=== PATIENT | female | born 1970 | race African-American/Black ===

== ENCOUNTER 2016-12-01 17:17 | Emergency (ER) | payer OTHER ==
[~2016-12-01] VITALS: Ht 172.7 cm; Wt 87.1 kg
[2016-12-01 18:28] LABS: Albumin 3.8 g/dL (3.4-5.0); Anion Gap 10 (5-15); Aspartate Aminotransferase 20 U/L (15-37); BUN/Creatinine Ratio 12.3; Blood Urea Nitrogen 10 mg/dL (7-18); Calcium 8.7 mg/dL (8.5-10.1); Carbon Dioxide 27 mmol/L (21-32); Chloride 104 mmol/L (98-107); GFR African American 99 mL/min; GFR Non-African American 82 mL/min; Glucose 72 mg/dL (74-106); Potassium 3.4 mmol/L (3.5-5.1); Sodium 141 mmol/L (136-145)
[2016-12-01 18:32] LABS: Alkaline Phosphatase 57 U/L (45-117); Bilirubin, Total 0.5 mg/dL (0.2-1.0); Total Protein 8.1 g/dL (6.4-8.2)
[2016-12-01 18:35] LABS: Basophils # (auto) 0 uL; Basophils % (auto) 0.5 % (0.0-2.0); Eosinophils # (auto) 0.1 uL; Eosinophils % (auto) 0.9 % (0.0-7.0); Hematocrit 39.6 % (36.0-46.0); Hemoglobin 13.5 g/dL (12.2-16.2); Lymphocytes # (auto) 3.2 uL; Lymphocytes % (auto) 47.7 % (10.0-50.0); Mean Corpuscular Volume 79.5 fL (80.0-100.0); Mean Platelet Volume 8.7 fL (7.4-10.4); Monocytes # (auto) 0.5 uL; Monocytes % (auto) 7.5 % (0.0-12.0); Neutrophils # (auto) 2.9 uL; Neutrophils % (auto) 43.4 % (37.0-80.0); Platelet Count (auto) 371 10^3/uL (140-450); Red Cell Distribution Width 13.6 % (11.6-16.0); White Blood Cell 6.7 10^3/uL (4.4-10.8)
[2016-12-01 21:08] VITALS: BP 138/64
== END 2016-12-01 21:12 | disposition home or self-care (01) ==
LOC: ER 17:26
DX: R07.89 Other chest pain (principal); T50.5X5A Adverse effect of appetite depressants, initial encounter; Y92.9 Unspecified place or not applicable; R51 Headache; Z88.6 Allergy status to analgesic agent
CPT/HCPCS: 36415; 71020; 80053; 84484; 85025; 93005

== ENCOUNTER 2017-02-13 18:21 | Emergency (ER) | payer BC, OTHER ==
[~2017-02-13] VITALS: Ht 172.7 cm; Wt 83.9 kg
[2017-02-13 19:49] LABS: Basophils # (auto) 0 uL; Basophils % (auto) 0.5 % (0.0-2.0); CONDITION Y; Eosinophils # (auto) 0.1 uL; Eosinophils % (auto) 1.8 % (0.0-7.0); Hemoglobin 12.9 g/dL (12.2-16.2); Lymphocytes # (auto) 2.4 uL; Lymphocytes % (auto) 44.4 % (10.0-50.0); Mean Corpuscular Hgb Conc. 34.9 g/dL (32.0-36.0); Mean Corpuscular Volume 80.5 fL (80.0-100.0); Mean Platelet Volume 8.9 fL (7.4-10.4); Monocytes # (auto) 0.4 uL; Monocytes % (auto) 7.4 % (0.0-12.0); Neutrophils # (auto) 2.4 uL; Neutrophils % (auto) 45.9 % (37.0-80.0); Platelet Count (auto) 345 10^3/uL (140-450); Red Cell Distribution Width 13.2 % (11.6-16.0); White Blood Cell 5.3 10^3/uL (4.4-10.8)
[2017-02-13 19:59] LABS: Albumin 3.4 g/dL (3.4-5.0); BUN/Creatinine Ratio 12.2; Calcium 8.3 mg/dL (8.5-10.1); Potassium 3.7 mmol/L (3.5-5.1)
[2017-02-13 20:01] LABS: Bilirubin, Total 0.4 mg/dL (0.2-1.0); Total Protein 7.5 g/dL (6.4-8.2)
[2017-02-13 20:07] LABS: B-Type Natriuretic Peptide 114.04 pg/mL (0-100)
[2017-02-13 20:12] LABS: Temperature: 23.3 C (20.0-25.0)
[2017-02-13 22:30] VITALS: BP 145/109
[2017-02-14 00:19] LABS: Urine Bilirubin Negative (Negative); Urine Color Yellow (Yellow); Urine Glucose Normal (Normal); Urine Ketone Negative (Negative); Urine Mucus FEW (None Seen); Urine Nitrite Negative (Negative); Urine RBC 10 /hpf (0 - 4); Urine Squamous Epithelial Cell FEW /hpf (<5); Urine Urobilinogen Normal (Negative); Urine pH 5.5 (5.0-8.0)
[2017-02-14 00:28] LABS: Urine Blood 2+ /uL (Negative)
== END 2017-02-14 00:01 | disposition home or self-care (01) ==
LOC: ER 18:35
DX: I10 Essential (primary) hypertension (principal); R07.89 Other chest pain; Z98.51 Tubal ligation status; Z88.6 Allergy status to analgesic agent; Z88.8 Allergy status to other drugs, medicaments and biological substances
CPT/HCPCS: 36415; 80053; 81001; 83880; 85025; 93005

== ENCOUNTER 2018-12-24 04:31 | Emergency (ER) | payer OTHER ==
[~2018-12-24] VITALS: Ht 172.7 cm; Wt 86.2 kg
[2018-12-24 05:32] LABS: Urine Bacteria FEW /hpf (None Seen); Urine Blood Negative /uL (Negative); Urine Mucus FEW (None Seen); Urine Specific Gravity 1.022 (1.001-1.035); Urine WBC 5 /hpf (0 - 5)
[2018-12-24 05:56] LABS: Eosinophils # (auto) 0.1 uL; Hemoglobin 12.5 g/dL (12.2-16.2); Lymphocytes # (auto) 2.2 uL; Neutrophils # (auto) 2.7 uL; White Blood Cell 5.6 10^3/uL (4.4-10.8)
[2018-12-24 05:57] LABS: Basophils # (auto) 0.1 uL; Eosinophils % (auto) 2.2 % (0.0-7.0); Hematocrit 36.6 % (36.0-46.0); Lymphocytes % (auto) 38.8 % (10.0-50.0); Mean Corpuscular Hemoglobin 26.5 pg (28.0-32.0); Mean Corpuscular Hgb Conc. 34.1 g/dL (32.0-36.0); Mean Corpuscular Volume 77.8 fL (80.0-100.0); Monocytes # (auto) 0.5 uL; Monocytes % (auto) 9.6 % (0.0-12.0); Neutrophils % (auto) 48.4 % (37.0-80.0); Nucleated Red Blood Cells % 0.1 %; Platelet Count (auto) 306 10^3/uL (140-450); Red Blood Cells 4.71 10^6/uL (4.0-5.20); Red Cell Distribution Width 13.9 % (11.8-14.3)
[2018-12-24 06:18] LABS: Albumin 3.3 g/dL (3.4-5.0); BUN/Creatinine Ratio 14.3; Calcium 8.1 mg/dL (8.5-10.1); Potassium 3.5 mmol/L (3.5-5.1)
[2018-12-24 06:21] LABS: Bilirubin, Total 0.2 mg/dL (0.2-1.0); Total Protein 7.3 g/dL (6.4-8.2)
[2018-12-24 09:46] VITALS: BP 121/78
== END 2018-12-24 10:35 | disposition home or self-care (01) ==
LOC: ER 04:31
DX: N83.209 Unspecified ovarian cyst, unspecified side (principal); I10 Essential (primary) hypertension; Z88.6 Allergy status to analgesic agent; Z98.51 Tubal ligation status; Z88.8 Allergy status to other drugs, medicaments and biological substances
CPT/HCPCS: 36415; 76700; 76856; 80053; 81001; 83690; 83735; 84702; 85025

== ENCOUNTER 2020-10-05 07:52 | Emergency (ER) | payer OTHER ==
[~2020-10-05] VITALS: Ht 172.7 cm; Wt 110.2 kg
[2020-10-05 09:03] LABS: Urine Bacteria FEW /hpf (None Seen); Urine Blood 2+ /uL (Negative); Urine Mucus FEW (None Seen); Urine Specific Gravity 1.028 (1.001-1.035); Urine WBC 10 /hpf (0 - 5)
[2020-10-05 09:04] LABS: Basophils # (auto) 0 10 ^3/uL (0-0.2); Eosinophils # (auto) 0.1 10 ^3/uL (0-0.8); Lymphocytes # (auto) 1.6 10 ^3/uL (0.4-5.4); Neutrophils # (auto) 2.3 10 ^3/uL (1.6-8.6); Red Blood Cells 4.54 10^6/uL (4.0-5.20); White Blood Cell 4.5 10^3/uL (4.4-10.8)
[2020-10-05 09:06] LABS: Basophils % (auto) 0.7 % (0.0-2.0); Eosinophils % (auto) 1.8 % (0.0-7.0); Hematocrit 31.8 % (36.0-46.0); Hemoglobin 10.7 g/dL (12.2-16.2); Lymphocytes % (auto) 36.3 % (10.0-50.0); Mean Corpuscular Hemoglobin 23.7 pg (28.0-32.0); Mean Corpuscular Hgb Conc. 33.8 g/dL (32.0-36.0); Mean Corpuscular Volume 70.1 fL (80.0-100.0); Monocytes # (auto) 0.4 10 ^3/uL (0-1.3); Monocytes % (auto) 9.7 % (0.0-12.0); Neutrophils % (auto) 51.5 % (37.0-80.0); Nucleated Red Blood Cells % 0.1 %
[2020-10-05 09:17] LABS: Albumin 3.2 g/dL (3.4-5.0); BUN/Creatinine Ratio 13.6; Calcium 8.4 mg/dL (8.5-10.1); Potassium 3.6 mmol/L (3.5-5.1)
[2020-10-05 09:20] LABS: Bilirubin, Total 0.4 mg/dL (0.2-1.0); Total Protein 7.3 g/dL (6.4-8.2)
[2020-10-05] MEDS ORDERED: cefTRIAXone 1GM/50ML D5W 50 ML IV ONE (10:00)
[2020-10-05] MEDS ORDERED: SODIUM CHLORIDE 0.9% 1,000 ML IV ONE (10:00)
[2020-10-05 12:33] VITALS: BP 107/72
== END 2020-10-05 13:50 | disposition home or self-care (01) ==
LOC: ER 07:52
DX: N83.202 Unspecified ovarian cyst, left side (principal); N83.201 Unspecified ovarian cyst, right side; D25.9 Leiomyoma of uterus, unspecified; N39.0 Urinary tract infection, site not specified; N76.0 Acute vaginitis; E44.1 Mild protein-calorie malnutrition; E78.5 Hyperlipidemia, unspecified; I10 Essential (primary) hypertension; Z68.36 Body mass index [BMI] 36.0-36.9, adult; Z32.02 Encounter for pregnancy test, result negative
CPT/HCPCS: 36415; 76830; 76856; 80053; 81001; 81025; 85025; 96365; 99285; J0696; J7030

== ENCOUNTER 2022-04-22 21:23 | Inpatient (IN) | payer OTHER ==
[~2022-04-22] VITALS: Ht 172.7 cm; Wt 121.7 kg
[2022-04-22 22:21] LABS: Urine Bacteria FEW /hpf (None Seen); Urine Blood Negative /uL (Negative); Urine Mucus FEW (None Seen); Urine Specific Gravity 1.018 (1.001-1.035); Urine WBC 1 /hpf (0 - 5)
[2022-04-22 22:32] LABS: Eosinophils # (auto) 0.1 10 ^3/uL (0-0.8); Eosinophils % (auto) 1.4 % (0.0-7.0); Hemoglobin 10.9 g/dL (12.2-16.2); Monocytes # (auto) 0.9 10 ^3/uL (0-1.3); Neutrophils # (auto) 4.5 10 ^3/uL (1.6-8.6); Nucleated Red Blood Cells % 0.1 %; White Blood Cell 8.1 10^3/uL (4.4-10.8)
[2022-04-22 22:33] LABS: Basophils # (auto) 0 10 ^3/uL (0-0.2); Basophils % (auto) 0.6 % (0.0-2.0); Hematocrit 34.1 % (36.0-46.0); Lymphocytes # (auto) 2.6 10 ^3/uL (0.4-5.4); Lymphocytes % (auto) 32.6 % (10.0-50.0); Mean Corpuscular Hemoglobin 20.6 pg (28.0-32.0); Mean Corpuscular Hgb Conc. 31.8 g/dL (32.0-36.0); Mean Corpuscular Volume 64.9 fL (80.0-100.0); Monocytes % (auto) 10.5 % (0.0-12.0); Neutrophils % (auto) 54.9 % (37.0-80.0); Red Blood Cells 5.26 10^6/uL (4.0-5.20); Red Cell Distribution Width 20.1 % (11.8-14.3)
[2022-04-22 22:44] LABS: INR 0.98 (0.9-1.15)
[2022-04-22 22:48] LABS: Albumin 3.6 g/dL (3.4-5.0); BUN/Creatinine Ratio 12.4; Calcium 8.8 mg/dL (8.5-10.1); Magnesium 2.1 mg/dL (1.6-2.6); Potassium 3.6 mmol/L (3.5-5.1)
[2022-04-22 22:52] LABS: Bilirubin, Total 0.4 mg/dL (0.2-1.0); Total Protein 7.7 g/dL (6.4-8.2)
[2022-04-22] MEDS ORDERED: ASPirin 325 MG TAB PO ONE (23:45)
[2022-04-23] MEDS ORDERED: ASPirin 81 mg TAB PO ONE ×2 (00:09→00:15)
[2022-04-23] MEDS ORDERED: MORPHINE SULFATE INJ 2 MG/ml SYRG IV PRN (09:30)
[2022-04-23] MEDS ORDERED: cefTRIAXone 1GM/50ML D5W 50 ML IV ONE (09:30)
[2022-04-23] MEDS ORDERED: HYDROcodone-ACET 5/325MG TAB PO PRN (09:30)
[2022-04-23] MEDS ORDERED: ACETAMINOPHEN 325 MG TAB PO PRN (09:30)
[2022-04-23] MEDS ORDERED: ONDANSETRON HCL 4 MG/2 ML VIAL IV PRN (09:30)
[2022-04-23] MEDS ORDERED: DOCUSATE SOD 100 MG CAP PO PRN (09:30)
[2022-04-23] MEDS: ENOXAPARIN SOD 40 MG/0.4 ML SYRINGE SC SCH (09:59)
[2022-04-23 22:30] VITALS: BP 102/72
[2022-04-23 22:39] VITALS: BP 102/72
[2022-04-23] MEDS ORDERED: AMLO-489 PO (22:49)
[2022-04-23] MEDS ORDERED: SIMV-8 PO (22:49)
[2022-04-24 05:14] VITALS: BP 102/64
[2022-04-24 07:29] LABS: Basophils # (auto) 0 10 ^3/uL (0-0.2); Eosinophils # (auto) 0.1 10 ^3/uL (0-0.8); Eosinophils % (auto) 0.8 % (0.0-7.0); Monocytes # (auto) 0.7 10 ^3/uL (0-1.3)
[2022-04-24 07:34] LABS: Basophils % (auto) 0.6 % (0.0-2.0); Hematocrit 33.2 % (36.0-46.0); Hemoglobin 10.5 g/dL (12.2-16.2); Lymphocytes # (auto) 1.8 10 ^3/uL (0.4-5.4); Lymphocytes % (auto) 26.4 % (10.0-50.0); Mean Corpuscular Hemoglobin 20.7 pg (28.0-32.0); Mean Corpuscular Hgb Conc. 31.7 g/dL (32.0-36.0); Mean Corpuscular Volume 65.2 fL (80.0-100.0); Monocytes % (auto) 10.5 % (0.0-12.0); Neutrophils # (auto) 4.3 10 ^3/uL (1.6-8.6); Neutrophils % (auto) 61.7 % (37.0-80.0); Nucleated Red Blood Cells % 0.3 %
[2022-04-24 07:49] LABS: Albumin 3.3 g/dL (3.4-5.0); Calcium 8.5 mg/dL (8.5-10.1); Potassium 4.5 mmol/L (3.5-5.1)
[2022-04-24 07:50] LABS: Red Cell Distribution Width 20.5 % (11.8-14.3)
[2022-04-24 07:55] LABS: Bilirubin, Total 0.4 mg/dL (0.2-1.0)
[2022-04-24 08:19] LABS: BUN/Creatinine Ratio 16.7
[2022-04-24 08:20] VITALS: BP 105/64
[2022-04-24] MEDS: AZITHROMYCIN 500MG/ 250ML 250 ML IV SCH (09:22)
[2022-04-24] MEDS: ENOXAPARIN SOD 40 MG/0.4 ML SYRINGE SC SCH (09:22)
[2022-04-24 12:25] VITALS: BP 127/78
[2022-04-24 16:25] VITALS: BP 122/73
[2022-04-24 22:00] VITALS: BP 106/60
[2022-04-25 05:00] VITALS: BP 107/73
[2022-04-25 08:20] VITALS: BP 115/74
[2022-04-25] MEDS: AZITHROMYCIN 500MG/ 250ML 250 ML IV SCH (10:08)
[2022-04-25] MEDS: ENOXAPARIN SOD 40 MG/0.4 ML SYRINGE SC SCH (10:08)
[2022-04-25 12:20] VITALS: BP 117/79
[2022-04-25] MEDS ORDERED: AZIT500T66 PO (12:38)
== END 2022-04-25 16:00 | disposition home or self-care (01) | DRG 194 ==
LOC: ER 21:24 → TELE 04-23 09:19 → TELE-WESTW 04-23 10:07
PROVIDERS: ADMIT Internal Medicine; ATTEND Internal Medicine
DX: J18.9 Pneumonia, unspecified organism (principal); Z68.41 Body mass index [BMI] 40.0-44.9, adult; R07.89 Other chest pain; Z20.822 Contact with and (suspected) exposure to COVID-19; E78.00 Pure hypercholesterolemia, unspecified; I10 Essential (primary) hypertension; D64.9 Anemia, unspecified; E66.9 Obesity, unspecified; Z90.710 Acquired absence of both cervix and uterus
CPT/HCPCS: 36415; 70551; 71045; 80053; 81001; 83735; 83880; 84484; 85025; 85379; 85610; 85730; 93005; 93306; 96365; G0378; J0696